=== PATIENT | female | born 1975 | race Caucasian/White ===

== ENCOUNTER 2019-04-21 13:01 | Inpatient (IN) | payer MEDICARE, MEDICAID, SELFPAY ==
[2019-04-21] VITALS (42 sets, daily range): BP systolic 102–163; BP diastolic 25–95; PULSE 61–121; RESP 3–36; TEMP 36.5–37.7; O2SAT 82–98
--- NOTE | 2019-04-21 13:30 | ED.GENADUL_ITS ---
Discharge Plan Disposition Patient Disposition: [facility] INPATIENT Condition: Stable Discharge Details Chief Complaint: SOB Clinical Impression: Asthma exacerbation, Hypoxia Primary Care Provider: Uziel Gonzalez ED Provider: Tulio Jones Home Meds and New Rx's Prescriptions: No Action leflunomide 20 mg tablet 20 mg PO DAILY Qty: 90 RF: 4 cetirizine [Zyrtec] 10 MG tablet,chewable 10 mg PO DAILY PRN RF: 0 desonide 15 GM cream Topical DAILY Qty: 60 RF: 3 secukinumab [Cosentyx (2 Syringes)] 150 MG/1 ML syringe 150 mg SQ Q28 days RF: 0 paroxetine HCl 20 MG tablet 20 mg PO DAILY Qty: 90 RF: 4 budesonide-formoterol [Symbicort] 10.2 GM HFA aerosol inhaler 2 puff Inhalation BID Qty: 1 RF: 11 PROVENTIL HFA 18 GM HFA.AER.AD 2 puff Inhalation Q6H PRN Qty: 2 RF: 4 diclofenac sodium 75 MG tablet,delayed release (DR/EC) 75 mg PO BID Qty: 180 RF: 4 ergocalciferol (vitamin D2) [Vitamin D2] 50,000 UNITS capsule 50,000 units PO DIRECTED Qty: 12 RF: 4 magnesium oxide 400 mg tablet 400 mg PO DAILY Qty: 90 RF: 4 diazepam 5 mg tablet 5 mg PO BID PRN Qty: 60 RF: 1 esomeprazole magnesium [Nexium] 40 mg capsule,delayed release(DR/EC) 40 mg PO BID Qty: 180 RF: 4 hydrochlorothiazide 25 mg tablet 25 mg PO DAILY Qty: 90 RF: 4 Medical Decision Making 44 yo female who states she has a hx of asthma, chronic smoker, comes in with 1 week of shortness of breath and cough. >Denies recent travel, fevers. She is in no respiratory distress on exam but is noted to have diffuse expieratory wheezing in all lung ayala bilaterally. no leg edema or calf pain or pleuritic pain and exam is consistent with asthma/copd so doubt PE. No chest pain/pressure so doubt acs. Given smoking hx suspect likely copd exacerbation, will tx with steroids, nebs and abx given increased cough and reassess. No fever and appears well so doubt pna pt's o2 saturation is now in the mid 80's on room air, increases to low to mid 90's on NC 3L. Wheezing has improved on exam Lab work shows mild elevation of probnp, mild low K. Has mild wheezing at the apices but is still hypoxic requiring o2, xray unremarkable. Will obtain CT to eval for possible pe vs infiltrate not being seen on xray ct shows groundglass opacities in the right upper lobe, no PE. Still requiring o2, will admit for asthma exacerbation and continued monitoring Differential Diagnosis copd, asthma, bronchitis Imaging Data Radiologic Study: Attestation: I personally reviewed and interpreted this imaging study as follows: Imaging: X-Ray Radiologist's impression: cardiomegaly Radiologic Study #2: Attestation: I personally reviewed and interpreted this imaging study as follows: Imaging: CT Scan Radiologist's impression: IMPRESSION: 1. No acute pulmonary embolus. 2. Groundglass opacities within the right upper lobe. Lab Data Lab results reviewed: Yes I reviewed the patient's lab results. ECG Data Attestation: I personally reviewed and interpreted this ECG (s) as follows: Prior ECG tracings: not available for review Interpretation: sinus rhythm, rate of 80, qtc 499, no acute st t wave ischemic findings HPI General Mode of arrival: ambulatory . Date/Time Provider Initiated Documentation: 04/21/19 13:05 . Limitations to Documentation: no limitations . Information obtained by: patient . History of Present Illness 44 year old F presents to the emergency department with the chief complaint of shortness of breath, described as moderate, Patient started experiencing this week(s) (1) and it has been constant. No relieving factors improve symptom(s), No exacerbating factors reported . Patient notes cough. Related Data Home Medications Medication Instructions Recorded Confirmed cetirizine [Zyrtec] 10 mg PO DAILY PRN tab-cap 06/02/14 03/30/18 desonide 0 TOPICAL DAILY #60 g 03/13/18 secukinumab [Cosentyx (2 Syringes)] 150 mg SQ Q28 days syringe 04/12/18 paroxetine HCl 20 mg PO DAILY #90 tab-cap 05/06/18 budesonide-formoterol [Symbicort 2 puff INHALATION BID #1 inhaler 05/07/18 160/4.5 Mcg Inhaler] diclofenac sodium 75 mg PO BID #180 tab-cap 05/21/18 ergocalciferol (vitamin D2) 50,000 units PO DIRECTED #12 cap 05/21/18 [Vitamin D2] magnesium oxide 400 mg (241.3 mg 400 mg PO DAILY #90 tab 07/11/18 magnesium) tablet leflunomide 20 mg tablet 20 mg PO DAILY #90 tab 11/26/18 11/26/18 diazepam 5 mg tablet 5 mg PO BID PRN #60 tab-cap 02/11/19 esomeprazole magnesium 40 mg 40 mg PO BID #180 tab-cap 03/13/19 capsule,delayed release hydrochlorothiazide 25 mg tablet 25 mg PO DAILY #90 tab-cap 04/02/19 Previous Rx's Medication Instructions Recorded paroxetine HCl 20 mg PO DAILY #90 tab-cap 05/06/18 budesonide-formoterol [Symbicort 2 puff INHALATION BID #1 inhaler 05/07/18 160/4.5 Mcg Inhaler] diclofenac sodium 75 mg PO BID #180 tab-cap 05/21/18 ergocalciferol (vitamin D2) 50,000 units PO DIRECTED #12 cap 05/21/18 [Vitamin D2] magnesium oxide 400 mg (241.3 mg 400 mg PO DAILY #90 tab 07/11/18 magnesium) tablet leflunomide 20 mg tablet 20 mg PO DAILY #90 tab 11/26/18 diazepam 5 mg tablet 5 mg PO BID PRN #60 tab-cap 02/11/19 esomeprazole magnesium 40 mg 40 mg PO BID #180 tab-cap 03/13/19 capsule,delayed release hydrochlorothiazide 25 mg tablet 25 mg PO DAILY #90 tab-cap 04/02/19 Allergies Allergy/AdvReac Type Severity Reaction Status Date / Time indomethacin [From Indocin] AdvReac Severe ABD PAIN, Unverified 04/21/19 13:26 DIARRHEA acetaminophen AdvReac Unverified 04/21/19 13:26 ibuprofen AdvReac Unverified 04/21/19 13:26 LEMON Allergy Severe SWELLING Uncoded 04/21/19 13:26 TEA DRINK Allergy Severe SWELLING Uncoded 04/21/19 13:26 General Stated Complaint: SOB MOUSTAPHA: 3 Review of Systems Review of Systems All systems reviewed & are unremarkable except as noted in HPI and below Constitutional Denies chills, Denies fever(s) and Denies weakness Cardiovascular Denies chest pain Gastrointestinal Denies abdominal pain, Denies nausea and Denies vomiting Integumentary/Breasts Denies rash Neurologic Denies weakness PFSH Surgical History section (~07/1996) Ligation of fallopian tube (~08/2004) NASAL (~2000) Tonsillectomy and adenoidectomy Family History Mother Essential hypertension Personal history of malignant neoplasm Depression Asthma Father Diabetes Essential hypertension Heart disease Sister Diabetes Essential hypertension Grandfather Myocardial infarction Grandfather Personal history of malignant neoplasm Myocardial infarction Stroke Grandmother Personal history of malignant neoplasm Heart disease Stroke Asthma Grandmother Diabetes Essential hypertension Personal history of malignant neoplasm Sister Depression Son Depression Social History Smoking/Tobacco Use Status: Current every day Tobacco Type: cigarettes Alcohol Intake: current Alcohol Intake frequency: holidays/special occasions only Drug use: Never Do you feel safe in your relationship?: Yes Exam Const General: no acute distress Orientation: alert HENMT Head: normal to inspection Ears: external ears normal General nose exam: external nose normal Mouth: moist mucous membranes Eyes General: appearance normal, both eyes and all related structures Neck Neck: normal visual inspection Resp Effort & Inspection: normal respiratory effort and able to speak in complete sentences Cardio Rate: regular rate Skin General skin exam: no rashes or lesions noted Neuro General: alert and oriented x3 Extrem General: normal to inspection Psych Mental Status: mental status grossly normal Course Vital Signs Temperature 36.5 C 04/21/19 13:18 Pulse 80 04/21/19 13:18 Respiratory Rate 19 04/21/19 13:18 Blood Pressure 161/75 H 04/21/19 13:18 Pulse Oximetry 94 L 04/21/19 13:18 Temperature 36.5 C 04/21/19 13:18 Temperature Source Temporal Artery Scan 04/21/19 13:18 Pulse 80 04/21/19 13:18 Respiratory Rate 16 04/21/19 13:22 Respiratory Effort 04/21/19 13:22 Respiratory Depth Normal 04/21/19 13:22 Respiratory Pattern Irregular 04/21/19 13:22 Blood Pressure 161/75 H 04/21/19 13:18 Pulse Oximetry 94 L 04/21/19 13:18 Oxygen Delivery Method Nasal Cannula 04/21/19 13:18 Oxygen Flow Rate 2 04/21/19 13:18
[2019-04-21] MEDS: predniSONE 20 MG TAB 60 MG PO (13:39)
[2019-04-21] MEDS: levoFLOXacin 500 MG, levoFLOXacin 250 MG 750 MG PO (13:39)
[2019-04-21] MEDS: Albuterol/Ipratropium 3 ML UPD VIAL UPD ×5 (13:39→23:49)
--- NOTE | 2019-04-21 14:45 | DI.RAD_ITS ---
SYMPTOMS/DIAGNOSIS: COUGH, SHORTNESS OF BREATH PORTABLE CHEST: Comparison is made with [id number]. The exam is limited by the patient's body habitus. Leads overlie the chest. The heart appears enlarged. There are streaky densities in the right lung which appear unchanged when compared with the previous exam. No new infiltrate, effusion or pulmonary edema is seen. IMPRESSION: Cardiomegaly. No definite acute abnormality.
--- NOTE | 2019-04-21 15:23 | NUR.NOTE ---
Nursing Note: MD made aware of Pt oxygen saturation of 88% on RA. Increased to 96% on NC at 4lpm.
[2019-04-21 15:26] LABS: Abs Immature Grans 0.01 k/cumm (0.0-0.09); Absolute Basophil Count 0.03 k/cumm (0.0-0.2); Absolute Eosinophil Count 0.05 k/cumm (0.0-0.7); Absolute Lymphocyte Count 0.75 k/cumm (1.2-3.4); Absolute Monocyte Count 0.45 k/cumm (0.11-0.7); Absolute Neutrophil Count 2.93 k/cumm (1.2-6.7); Basophils % 0.7; Eosinophils % 1.2; HCT 36.2 % (36.0-46.0); HGB 11.6 g/dL (12.0-15.5); Immature Grans % 0.2; Lymphocytes % 17.8; Mean Corpuscular Hemoglobin 26.3 pg (27.0-33.0); Mean Corpuscular Volume 82.1 fL (80-95); Monocytes % 10.7; Neutrophils % 69.4; Platelet Count 186 x1000/uL (130-400); RBC 4.41 m/cumm (4.00-5.20); RBC Distribution Width 16.6 % (11.7-14.6); White Blood Cell Count 4.22 k/cumm (4.4-10.8)
[2019-04-21 15:39] LABS: INR 1.1 (0.9-1.1); PTT Activated 29.6 sec (21.0-31.4)
[2019-04-21 15:46] LABS: ALT 18 U/L (12-78); AST 20 U/L (15-37); Albumin 3.2 g/dL (3.4-5.0); Alkaline Phosphatase 70 U/L (46-116); Anion Gap 11.6 mmol/L (3-11); BUN 9 mg/dL (7-18); Bilirubin, Total 0.3 mg/dL (0.2-1.0); CO2 27.4 mmol/L (21.0-32.0); CREATININE 0.97 mg/dL (0.55-1.02); Calcium 8.6 mg/dL (8.5-10.1); Chloride 101 mmol/L (98-107); Glucose 112 mg/dL (70-100); NT-proBNP 602 pg/mL; Potassium 3.2 mmol/L (3.5-5.1); Sodium 140 mmol/L (136-145); Total Protein 7.4 g/dL (6.4-8.2)
[2019-04-21 15:50] LABS: Troponin I < 0.02 ng/mL (0.00-0.06)
--- NOTE | 2019-04-21 15:52 | DI.CT_ITS ---
SYMPTOM/DIAGNOSIS: HYPOXIA PE CHEST CT: CT angiography was performed with multi slice acquisition and multi planar and 3D reconstruction. Comparison is made with 11/23/11. There is no evidence of pulmonary emboli or aortic dissection. No pleural or pericardial effusions are seen. Scarring is again noted in the right middle and right lower lobes. There is mild associated bronchiectasis in the right middle lobe. No mass, adenopathy or pulmonary nodules are seen. There are multiple ground glass opacities seen in both upper lobes, right greater than left. Evaluation of the lungs is suboptimal due to respiratory motion. There are no visible emphysematous changes. No suspicious bony abnormalities are identified. IMPRESSION: Bilateral upper lobe ground glass opacities may indicate infectious or inflammatory pneumonitis.
[2019-04-21] MEDS: Omnipaque 350 MG/ML 100 ML BTL IJ (16:24)
--- NOTE | 2019-04-21 17:13 | DI.VRAD_ITS ---
EXAM: CT Angiography Chest With Contrast EXAM DATE/TIME: 04/21/2019 3:53 PM CLINICAL HISTORY: 44 years old, female; Signs and symptoms; Other: Hypoxia TECHNIQUE: Imaging protocol: Axial computed tomographic angiography images of the chest with intravenous contrast using CT angiography protocol. Coronal and sagittal reformatted images were created and reviewed. 3D rendering: MIP reconstructed images were created and reviewed. COMPARISON: CR XR PORTABLE CHEST AP 04/21/2019 2:50 PM FINDINGS: Pulmonary arteries: No acute pulmonary embolus. Aorta: No aortic aneurysm. No aortic dissection. Lungs: Scarring within right middle lobe with focal bronchiectasis. Groundglass opacities within the right upper lobe. Pleural space: Unremarkable. No pneumothorax. No pleural effusion. Heart: Mild cardiomegaly. Lymph nodes: Unremarkable. No enlarged lymph nodes. Bones/joints: Unremarkable. No acute fracture. Soft tissues: Unremarkable. IMPRESSION: 1. No acute pulmonary embolus. 2. Groundglass opacities within the right upper lobe. Dictated and Authenticated by: Ryne Houser MD. Ordering:GAIL Antunez MD
[2019-04-21] MEDS: Potassium Chloride 20 MEQ TABCR 40 MEQ PO (17:30)
[2019-04-21 17:39] LABS: Bilirubin Negative (Negative); Blood Negative (Negative); Clarity Clear; Glucose Negative (Negative); Ketones Negative (Negative); Leukocyte Esterase Negative (Negative); Nitrite Negative (Negative); Urobilinogen 0.2 EU/dL (Up TO 0.2); pH 6.5 (5-8)
[2019-04-21 17:46] LABS: RBC Negative (0-2); WBC Negative HPF (0-5)
[2019-04-21 17:47] LABS: Bacteria Rare HPF (Negative); C & S Indicated? No; Casts Negative LPF (Negative); Crystals Negative HPF (Negative); Epithelial Cells Rare HPF (Negative); Mucus Trace (Negative); Other Cells Negative (Negative)
--- NOTE | 2019-04-21 18:02 | W.PM.HP.N ---
Date of service: 04/21/19 Time of Service: 18:02 Assessment and Plan (1) Exacerbation of asthma: Start date: 04/21/19 Current visit: Yes Status: Acute This is a 44-year-old lady being admitted for exacerbation of asthma with probable element of COPD. She is having hypoxemia with no acute infiltrates but chronic appearing groundglass opacities in the right upper lobe with decreased aeration over the right lung ayala. She is on Levaquin which will be continued orally and we will aggressively treat her bronchospasm with nebulizer treatments and IV Solu-Medrol. She will continue O2 supplementation. Because of her fatigue and prolonged symptoms it is anticipated she will be hospitalized more than 48 hours. Qualifiers: Asthma persistence: persistent Asthma severity: severe Qualified Code(s): J45.51 - Severe persistent asthma with (acute) exacerbation (2) Hypoxemia: Start date: 04/21/19 Current visit: Yes Status: Acute Acute and associated with bronchospasm and probable plugging with increased mobilization of mucus with recent viral URI and decreased smoking. Continue O2 supplementation with aggressive respiratory treatment. (3) Acute bronchitis: Start date: 04/21/19 Current visit: Yes Status: Acute Continue on Levaquin for bronchitis but also because of increased sputum and question of groundglass opacities right upper lobe with follow-up imaging if indicated. Qualifiers: Bronchitis organism: unspecified organism Qualified Code(s): J20.9 - Acute bronchitis, unspecified (4) Tobacco abuse: Current visit: Yes Status: Chronic Patient smokes most of her adult life since age of 19 and is extremely cardiac. Place NicoDerm patch while in the hospital and tobacco cessation counseling should be ongoing. History of Present Illness Chief Complaint: Hoarse voice and cough for 1 week Narrative: This is a 44-year-old lady who has a history of asthma for the last several years and is a smoker with sleep apnea not severe enough for treatment according to her report. She began to have a raspy voice 1 week prior to admission and felt feverish but had no measured fever. She is here to have cough with increasing shortness of breath and increasing wheezing which prompted her to be evaluated in the ED the morning of admission. She was in the ED most of the day and was being ready to arrange for home care when she had hypoxemia and worsening cough with production of sputum after treatments. Because of her fatigue and hypoxemia she was given Levaquin orally and was already given 1 dose of oral prednisone but will be changed to IV Solu-Medrol and more aggressive respiratory care with oxygen supplementation with admission. She is not having any hemoptysis. She was having some pleuritic pain with her cough. She was slightly dyspneic. Her hoarse voice persisted. She denied any nausea or vomiting. Imaging with CT scan of the chest revealed no acute infiltrates but did have some groundglass opacities within the right upper lobe with no evidence of pulmonary emboli. There was mild cardiomegaly on chest x-ray. The patient states that she will not smoke when she returns home but has smoked most of her adult life. She is obese but may be contributing to her sleep apnea. Review of Systems Review of Systems 13 point review of systems otherwise unrevealing or stable. [facility] Surgical History section (~07/1996) Ligation of fallopian tube (~08/2004) NASAL (~2000) Tonsillectomy and adenoidectomy Family History Mother Essential hypertension Personal history of malignant neoplasm Depression Asthma Father Diabetes Essential hypertension Heart disease Sister Diabetes Essential hypertension Grandfather Myocardial infarction Grandfather Personal history of malignant neoplasm Myocardial infarction Stroke Grandmother Personal history of malignant neoplasm Heart disease Stroke Asthma Grandmother Diabetes Essential hypertension Personal history of malignant neoplasm Sister Depression Son Depression Social History Smoking/Tobacco Use Status: Current every day Tobacco Type: cigarettes Alcohol Intake: current Alcohol Intake frequency: holidays/special occasions only Drug use: Never Do you feel safe in your relationship?: Yes Meds Home Medications Medication Instructions Recorded Confirmed Type cetirizine [Zyrtec] 10 mg PO DAILY PRN tab-cap 06/02/14 04/21/19 History desonide 0 TOPICAL DAILY #60 g 03/13/18 History secukinumab [Cosentyx (2 Syringes)] 150 mg SQ Q28 days syringe 04/12/18 04/21/19 History paroxetine HCl 20 mg PO DAILY #90 tab-cap 05/06/18 04/21/19 Rx budesonide-formoterol [Symbicort 2 puff INHALATION BID #1 inhaler 05/07/18 04/21/19 Rx 160/4.5 Mcg Inhaler] Proventil Hfa 2 puff INHALATION Q6H PRN #2 05/21/18 04/21/19 Clinic inhaler diclofenac sodium 75 mg PO BID #180 tab-cap 05/21/18 04/21/19 Rx ergocalciferol (vitamin D2) 50,000 units PO DIRECTED #12 cap 05/21/18 04/21/19 Rx [Vitamin D2] magnesium oxide 400 mg (241.3 mg 400 mg PO DAILY #90 tab 07/11/18 04/21/19 Rx magnesium) tablet leflunomide 20 mg tablet 20 mg PO DAILY #90 tab 11/26/18 04/21/19 Rx diazepam 5 mg tablet 5 mg PO BID PRN #60 tab-cap 02/11/19 04/21/19 Rx esomeprazole magnesium 40 mg 40 mg PO BID #180 tab-cap 03/13/19 04/21/19 Rx capsule,delayed release hydrochlorothiazide 25 mg tablet 25 mg PO DAILY #90 tab-cap 04/02/19 04/21/19 Rx Allergies Allergy/AdvReac Type Severity Reaction Status Date / Time indomethacin [From Indocin] AdvReac Severe ABD PAIN, Unverified 04/21/19 18:05 DIARRHEA acetaminophen AdvReac Unverified 04/21/19 18:05 ibuprofen AdvReac Unverified 04/21/19 18:05 LEMON Allergy Severe SWELLING Uncoded 04/21/19 18:05 TEA DRINK Allergy Severe SWELLING Uncoded 04/21/19 18:05 Exam Narrative Exam Narrative: General: Patient appears appropriate for age in moderate distress from coughing and with her hoarse voice. She is moderately obese. She is alert and oriented x3. HEENT: Normocephalic with eyes normal revealing pupils equal and reactive to light symmetrically and extraocular movement intact. Sclera anicteric. Oropharynx with moist oral mucosa. Neck: Supple without JVD. Back: Stooped posture with no CVA tenderness. Lungs: Bronchovesicular breath sounds diffusely with decreased aeration on the right compared to left and increased expiratory phase more on right than left with expiratory wheeze diffusely. Heart: Regular rate and rhythm without murmurs or gallops appreciated. Breasts: Exam deferred. Abdomen: Soft, obese contour and nontender to palpation with bowel sounds positive in all quadrants. No palpable hepatosplenomegaly. Genitalia/rectal: Exam deferred. Extremities: Without clubbing, cyanosis or pitting edema. All joints have fair range of motion. Skin: Pale, warm and dry. Neuro: Cranial nerves II through XII grossly intact, no focalizing motor deficits. Psych: Slightly anxious with pressured speech, good eye contact and normal affect. Mood is not depressed. Remote and recent memory intact. Results Labs : 04/21/19 14:30 04/21/19 14:30 Laboratory Results - last 24 hr 04/21/19 04/21/19 04/21/19 14:30 14:30 14:30 WBC 4.22 L RBC 4.41 Hgb 11.6 L Hct 36.2 MCV 82.1 MCH 26.3 L MCHC 32.0 RDW 16.6 H Plt Count 186 MPV 10.0 Immature Gran % 0.2 Neutrophils % 69.4 Lymphocytes % 17.8 Monocytes % 10.7 Eosinophils % 1.2 Basophils % 0.7 Absolute Neutrophils 2.93 Absolute Lymphocytes 0.75 L Absolute Monocytes 0.45 Absolute Eosinophils 0.05 Absolute Basophils 0.03 PT 11.0 INR 1.1 APTT 29.6 Sodium 140 Potassium 3.2 L Chloride 101 Carbon Dioxide 27.4 Anion Gap 11.6 H BUN 9 Creatinine 0.97 Estimated GFR/1.73 m2 >= 60.00 Glucose 112 H Calcium 8.6 Magnesium 2.0 Total Bilirubin 0.3 AST 20 ALT 18 Alkaline Phosphatase 70 Troponin I < 0.02 NT-Pro-B Natriuret Pep 602 H Total Protein 7.4 Albumin 3.2 L Urine Color Urine Clarity Urine pH Ur Specific [place] Urine Protein Urine Ketones Urine Blood Urine Nitrite Urine Bilirubin Urine Urobilinogen Ur Leukocyte Esterase Urine RBC Urine WBC Ur Epithelial Cells Urine Crystals Urine Bacteria Urine Casts Urine Mucus Urine Other Ur Culture Indicated? Urine Glucose 04/21/19 17:31 WBC RBC Hgb Hct MCV MCH MCHC RDW Plt Count MPV Immature Gran % Neutrophils % Lymphocytes % Monocytes % Eosinophils % Basophils % Absolute Neutrophils Absolute Lymphocytes Absolute Monocytes Absolute Eosinophils Absolute Basophils PT INR APTT Sodium Potassium Chloride Carbon Dioxide Anion Gap BUN Creatinine Estimated GFR/1.73 m2 Glucose Calcium Magnesium Total Bilirubin AST ALT Alkaline Phosphatase Troponin I NT-Pro-B Natriuret Pep Total Protein Albumin Urine Color Yellow Urine Clarity Clear Urine pH 6.5 Ur Specific [place] 1.010 Urine Protein 30 H Urine Ketones Negative Urine Blood Negative Urine Nitrite Negative Urine Bilirubin Negative Urine Urobilinogen 0.2 Ur Leukocyte Esterase Negative Urine RBC Negative Urine WBC Negative Ur Epithelial Cells Rare Urine Crystals Negative Urine Bacteria Rare Urine Casts Negative Urine Mucus Trace Urine Other Negative Ur Culture Indicated? No Urine Glucose Negative Last Vital Signs Temp 36.5 C 04/21/19 13:18 Pulse 84 04/21/19 16:46 Resp 25 H 04/21/19 16:50 BP 163/80 H 04/21/19 16:46 Pulse Ox 85 L 04/21/19 16:50
[2019-04-21 19:15] LABS: FREE T4 1.07 ng/dL (0.76-1.46)
--- NOTE | 2019-04-21 19:30 | NUR.NOTE ---
Nursing Note: Pt to [facility] floor at 1949 from ER via w/c. Pt A&Ox3. VSS, lungs wheezy and tight t/o. SOB at rest and exertion. Pt's SI brought in medications from home; sent to pharmacy. Pt's SI at bedside. Pt oriented to [facility] floor, call mahmood, medication administration. Call mahmood within reach. RN will continue to monitor.
[2019-04-21] MEDS: Esomeprazole 40 MG CAPCR PO (21:27)
[2019-04-21] MEDS: Enoxaparin 40 MG/0.4 ML SYR SC (21:27)
[2019-04-21] MEDS: methylPREDNISolone SUCC 125 MG VIAL 80 MG IVP (21:27)
[2019-04-22] VITALS (8 sets, daily range): BP systolic 119–165; BP diastolic 75–84; PULSE 63–77; RESP 4–20; TEMP 36.2–37.2; O2SAT 92–98
[2019-04-22] MEDS: methylPREDNISolone SUCC 125 MG VIAL 80 MG IVP ×2 (03:56→11:51)
[2019-04-22] MEDS: Albuterol/Ipratropium 3 ML UPD VIAL UPD ×3 (05:47→18:16)
[2019-04-22 07:05] LABS: HCT 37.5 % (36.0-46.0); HGB 11.6 g/dL (12.0-15.5); Mean Corp. HGB Concentration 30.9 g/dL (32.0-36.0); Mean Corpuscular Hemoglobin 25.4 pg (27.0-33.0); Mean Corpuscular Volume 82.2 fL (80-95); Mean Platelet Volume 9.7 fL (8.0-11.0); Platelet Count 191 x1000/uL (130-400); RBC 4.56 m/cumm (4.00-5.20); RBC Distribution Width 16.8 % (11.7-14.6); White Blood Cell Count 3.88 k/cumm (4.4-10.8)
[2019-04-22 07:22] LABS: ALT 15 U/L (12-78); AST 18 U/L (15-37); Albumin 3.1 g/dL (3.4-5.0); Alkaline Phosphatase 66 U/L (46-116); Anion Gap 10.4 mmol/L (3-11); BUN 11 mg/dL (7-18); Bilirubin, Total 0.2 mg/dL (0.2-1.0); CO2 24.6 mmol/L (21.0-32.0); CREATININE 0.78 mg/dL (0.55-1.02); Calcium 8.4 mg/dL (8.5-10.1); Chloride 103 mmol/L (98-107); Glucose 151 mg/dL (70-100); Potassium 3.9 mmol/L (3.5-5.1); Sodium 138 mmol/L (136-145); Total Protein 7.4 g/dL (6.4-8.2)
[2019-04-22] MEDS: PARoxetine 20 MG TAB PO (08:56)
[2019-04-22] MEDS: levoFLOXacin 500 MG TAB PO (08:56)
[2019-04-22] MEDS: Esomeprazole 40 MG CAPCR PO ×2 (08:57→20:31)
[2019-04-22] MEDS: hydroCHLOROthiazide 25 MG TAB PO (08:57)
[2019-04-22] MEDS: Nicotine 21 MG/24 HR PATCH TD (09:12)
[2019-04-22] MEDS: Normal Saline Flush 10 ML SYR IVP (11:50)
[2019-04-22] MEDS: LORazepam 0.5 MG TAB PO (11:51)
[2019-04-22] MEDS: Magnesium Oxide 400 MG TAB PO (11:57)
[2019-04-22 12:18] LABS: Lactate-non-spesis 1.8 mmol/l (0.6-1.4)
--- NOTE | 2019-04-22 15:38 | PGE_ITS ---
Date of Service Date of service: 04/22/19 Time of Service: 15:29 Assessment and Plan (1) Exacerbation of asthma: Current visit: Yes Status: Acute Improved. Start to decrease steroids. Continue symbicort, nebs. Wean O2 as tolerated. Qualifiers: Asthma severity: severe Asthma persistence: persistent Qualified Code(s): J45.51 - Severe persistent asthma with (acute) exacerbation (2) Pneumonitis: Current visit: Yes Status: Acute Acute vs chronic. My understanding is that this patient's CT is not normal at baseline. She followed with Dr Rm of pulmonlogy at [facility] - we will send the images to [facility] and attempt a phone consult. For now, continue empiric levofloxacin and steroids. (3) Hypoxemia: Current visit: Yes Status: Acute Treat as above. Wean O2 as tolerated (4) Tobacco abuse: Current visit: Yes Status: Chronic Advised to quit - seems to be pretty motivated. 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 (8) DVT prophylaxis: Current visit: Yes Status: Acute Lovenox Subjective Interval history since last seen: Feels better today. Voice sounds better, does not have pain in lungs today. She is tolerating the nebs per mask better than per handheld tube. Denies dizziness, wheezing, productive cough, nausea/vomiting. Less short of breath. Requiring 2 L of O2. Exam Narrative Exam Narrative: General: obese female, anxious, able to speak in lengthy sentences without getting short of breath, voice hoarseness noted HEENT: EOMI, MMM Heart: RRR, no m/r/g Lungs: No wheezing, diminished, but with audible B air entry, clear GI: abdomen is soft, nontender, nondistended Extremities: no e/c/c BLE's Objective Objective Clinical Data: Abnormal lab results 04/21/19 04/21/19 04/21/19 Range/Units 14:30 14:30 14:30 WBC 4.22 L (4.4-10.8) k/cumm Hgb 11.6 L (12.0-15.5) g/dL MCH 26.3 L (27.0-33.0) pg MCHC (32.0-36.0) g/dL RDW 16.6 H (11.7-14.6) % Absolute Lymphocytes 0.75 L (1.2-3.4) k/cumm Potassium 3.2 L (3.5-5.1) mmol/L Anion Gap 11.6 H (3-11) mmol/L Glucose 112 H (70-100) mg/dL Lactate (0.6-1.4) mmol/l Calcium (8.5-10.1) mg/dL NT-Pro-B Natriuret Pep 602 H ( - 299) pg/mL Albumin 3.2 L (3.4-5.0) g/dL TSH 4.50 H (0.358-3.74) uIU/mL Urine Protein (Negative) mg/dL 04/21/19 04/22/19 04/22/19 Range/Units 17:31 06:50 06:50 WBC 3.88 L (4.4-10.8) k/cumm Hgb 11.6 L (12.0-15.5) g/dL MCH 25.4 L (27.0-33.0) pg MCHC 30.9 L (32.0-36.0) g/dL RDW 16.8 H (11.7-14.6) % Absolute Lymphocytes (1.2-3.4) k/cumm Potassium (3.5-5.1) mmol/L Anion Gap (3-11) mmol/L Glucose 151 H (70-100) mg/dL Lactate (0.6-1.4) mmol/l Calcium 8.4 L (8.5-10.1) mg/dL NT-Pro-B Natriuret Pep ( - 299) pg/mL Albumin 3.1 L (3.4-5.0) g/dL TSH (0.358-3.74) uIU/mL Urine Protein 30 H (Negative) mg/dL 04/22/19 Range/Units 12:10 WBC (4.4-10.8) k/cumm Hgb (12.0-15.5) g/dL MCH (27.0-33.0) pg MCHC (32.0-36.0) g/dL RDW (11.7-14.6) % Absolute Lymphocytes (1.2-3.4) k/cumm Potassium (3.5-5.1) mmol/L Anion Gap (3-11) mmol/L Glucose (70-100) mg/dL Lactate 1.8 H (0.6-1.4) mmol/l Calcium (8.5-10.1) mg/dL NT-Pro-B Natriuret Pep ( - 299) pg/mL Albumin (3.4-5.0) g/dL TSH (0.358-3.74) uIU/mL Urine Protein (Negative) mg/dL Vital Signs Temperature 36.6 C 04/22/19 14:57 Temperature Source Tympanic 04/22/19 14:57 Pulse 69 04/22/19 14:57 Pulse Rhythm Regular 04/22/19 09:05 Pulse 86 04/21/19 16:50 Respiratory Rate 20 04/22/19 14:57 Respiratory Effort Non-Labored 04/22/19 09:05 Respiratory Depth Normal 04/22/19 09:05 Respiratory Pattern Normal 04/22/19 09:05 Blood Pressure 150/84 H 04/22/19 14:57 Blood Pressure Mean 102 04/21/19 16:46 Pulse Oximetry 95 04/22/19 14:57 Oxygen Delivery Method Nasal Cannula 04/22/19 14:57 Oxygen Flow Rate 3 04/22/19 14:57 Pain Level 3 04/22/19 07:55 Intake & Output 04/21/19 04/22/19 04/22/19 23:59 11:59 23:59 Intake Total 860 / 1100 240 / 1100 Balance 860 / 1100 240 / 1100 Weight 113.398 kg 117.2 kg Intake: Oral 860 / 1100 240 / 1100 Other: Urine Appearance Clear Comment voiding independently Laboratory Results WBC 3.88 k/cumm (4.4-10.8) L 04/22/19 06:50 RBC 4.56 m/cumm (4.00-5.20) 04/22/19 06:50 Hgb 11.6 g/dL (12.0-15.5) L 04/22/19 06:50 Hct 37.5 % (36.0-46.0) 04/22/19 06:50 MCV 82.2 fL (80-95) 04/22/19 06:50 MCH 25.4 pg (27.0-33.0) L 04/22/19 06:50 MCHC 30.9 g/dL (32.0-36.0) L 04/22/19 06:50 RDW 16.8 % (11.7-14.6) H 04/22/19 06:50 Plt Count 191 x1000/uL (130-400) 04/22/19 06:50 MPV 9.7 fL (8.0-11.0) 04/22/19 06:50 Immature Gran % 0.2 04/21/19 14:30 Neutrophils % 69.4 04/21/19 14:30 Lymphocytes % 17.8 04/21/19 14:30 Monocytes % 10.7 04/21/19 14:30 Eosinophils % 1.2 04/21/19 14:30 Basophils % 0.7 04/21/19 14:30 Absolute Neutrophils 2.93 k/cumm (1.2-6.7) 04/21/19 14:30 Absolute Lymphocytes 0.75 k/cumm (1.2-3.4) L 04/21/19 14:30 Absolute Monocytes 0.45 k/cumm (0.11-0.7) 04/21/19 14:30 Absolute Eosinophils 0.05 k/cumm (0.0-0.7) 04/21/19 14:30 Absolute Basophils 0.03 k/cumm (0.0-0.2) 04/21/19 14:30 PT 11.0 sec (9.3-11.0) 04/21/19 14:30 INR 1.1 (0.9-1.1) 04/21/19 14:30 APTT 29.6 sec (21.0-31.4) 04/21/19 14:30 Sodium 138 mmol/L (136-145) 04/22/19 06:50 Potassium 3.9 mmol/L (3.5-5.1) D 04/22/19 06:50 Chloride 103 mmol/L (98-107) 04/22/19 06:50 Carbon Dioxide 24.6 mmol/L (21.0-32.0) 04/22/19 06:50 Anion Gap 10.4 mmol/L (3-11) 04/22/19 06:50 BUN 11 mg/dL (7-18) 04/22/19 06:50 Creatinine 0.78 mg/dL (0.55-1.02) 04/22/19 06:50 Estimated GFR/1.73 m2 >= 60.00 (mL/min/1.73m2) 04/22/19 06:50 Glucose 151 mg/dL (70-100) H 04/22/19 06:50 Lactate 1.8 mmol/l (0.6-1.4) H 04/22/19 12:10 Calcium 8.4 mg/dL (8.5-10.1) L 04/22/19 06:50 Magnesium 2.0 mg/dL (1.8-2.4) 04/21/19 14:30 Total Bilirubin 0.2 mg/dL (0.2-1.0) 04/22/19 06:50 AST 18 U/L (15-37) 04/22/19 06:50 ALT 15 U/L (12-78) 04/22/19 06:50 Alkaline Phosphatase 66 U/L (46-116) 04/22/19 06:50 Troponin I < 0.02 ng/mL (0.00-0.06) 04/21/19 14:30 NT-Pro-B Natriuret Pep 602 pg/mL (-299) H 04/21/19 14:30 Total Protein 7.4 g/dL (6.4-8.2) 04/22/19 06:50 Albumin 3.1 g/dL (3.4-5.0) L 04/22/19 06:50 TSH 4.50 uIU/mL (0.358-3.74) H 04/21/19 14:30 Free T4 1.07 ng/dL (0.76-1.46) 04/21/19 14:30 Urine Color Yellow (Yellow) 04/21/19 17:31 Urine Clarity Clear 04/21/19 17:31 Urine pH 6.5 (5-8) 04/21/19 17:31 Ur Specific [place] 1.010 (1.005-1.025) 04/21/19 17:31 Urine Protein 30 mg/dL (Negative) H 04/21/19 17:31 Urine Ketones Negative mg/dL (Negative) 04/21/19 17:31 Urine Blood Negative (Negative) 04/21/19 17:31 Urine Nitrite Negative (Negative) 04/21/19 17:31 Urine Bilirubin Negative (Negative) 04/21/19 17:31 Urine Urobilinogen 0.2 EU/dL (Up TO 0.2) 04/21/19 17:31 Ur Leukocyte Esterase Negative (Negative) 04/21/19 17:31 Urine RBC Negative (0-2) 04/21/19 17:31 Urine WBC Negative HPF (0-5) 04/21/19 17:31 Ur Epithelial Cells Rare HPF (Negative) 04/21/19 17:31 Urine Crystals Negative HPF (Negative) 04/21/19 17:31 Urine Bacteria Rare HPF (Negative) 04/21/19 17:31 Urine Casts Negative LPF (Negative) 04/21/19 17:31 Urine Mucus Trace (Negative) 04/21/19 17:31 Urine Other Negative (Negative) 04/21/19 17:31 Ur Culture Indicated? No 04/21/19 17:31 Urine Glucose Negative mg/dL (Negative) 04/21/19 17:31
--- NOTE | 2019-04-22 15:46 | CHAPLAIN ---
Rose was sitting up in her chair when I visited. She said she is feeling much better today than yesterday. She spent most of yesterday in the ER with a pain scale of 10, she said, and today it is 3. She lives in [facility] with a man who has been her caregiver/partner for many years. She expects he will be in later today to visit. Her parents and an aunt were in this morning. Rose said she is disabled and now is dealing with health-related issue in her mobile home, which feels is causing some of her respiratory problems, that and the high pollen count, she said. She has been taking it one day at a time, she said after being very fearful in the ED when she couldn't breath well.
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
[2019-04-22] MEDS: Diclofenac Sodium 75 MG TABEC PO (20:31)
[2019-04-22] MEDS: Budesonide/Formoterol 160/4.5 6 GM 60 PUFF INH IH (20:31)
[2019-04-22] MEDS: Enoxaparin 40 MG/0.4 ML SYR SC (20:32)
[2019-04-22] MEDS: methylPREDNISolone SUCC 125 MG VIAL 60 MG IVP (20:32)
[2019-04-23] VITALS (9 sets, daily range): BP systolic 134–170; BP diastolic 83–93; PULSE 63–73; RESP 1–20; TEMP 35.3–36.9; O2SAT 38–99
[2019-04-23] MEDS: Albuterol/Ipratropium 3 ML UPD VIAL UPD ×5 (00:23→23:35)
[2019-04-23] MEDS: methylPREDNISolone SUCC 125 MG VIAL 60 MG IVP ×2 (04:48→11:06)
[2019-04-23] MEDS: Normal Saline Flush 10 ML SYR IVP (04:50)
[2019-04-23 06:57] LABS: Lactate-non-spesis 0.9 mmol/l (0.6-1.4)
[2019-04-23 07:07] LABS: Abs Immature Grans 0.01 k/cumm (0.0-0.09); Absolute Lymphocyte Count 0.56 k/cumm (1.2-3.4); Absolute Monocyte Count 0.34 k/cumm (0.11-0.7); Absolute Neutrophil Count 5.77 k/cumm (1.2-6.7); HCT 39.5 % (36.0-46.0); HGB 12.4 g/dL (12.0-15.5); Immature Grans % 0.1; Lymphocytes % 8.4; Mean Corp. HGB Concentration 31.4 g/dL (32.0-36.0); Mean Corpuscular Hemoglobin 25.8 pg (27.0-33.0); Mean Corpuscular Volume 82.3 fL (80-95); Monocytes % 5.1; Neutrophils % 86.4; Platelet Count 204 x1000/uL (130-400); RBC Distribution Width 16.6 % (11.7-14.6); White Blood Cell Count 6.68 k/cumm (4.4-10.8)
[2019-04-23 07:27] LABS: Anion Gap 8.9 mmol/L (3-11); BUN 23 mg/dL (7-18); CO2 27.1 mmol/L (21.0-32.0); CREATININE 0.89 mg/dL (0.55-1.02); Calcium 9.2 mg/dL (8.5-10.1); Chloride 103 mmol/L (98-107); Glucose 144 mg/dL (70-100); Magnesium 2.5 mg/dL (1.8-2.4); Potassium 3.9 mmol/L (3.5-5.1); Sodium 139 mmol/L (136-145)
[2019-04-23] MEDS: Budesonide/Formoterol 160/4.5 6 GM 60 PUFF INH IH ×2 (08:03→22:37)
[2019-04-23] MEDS: Diclofenac Sodium 75 MG TABEC PO ×2 (10:47→19:31)
[2019-04-23] MEDS: PARoxetine 20 MG TAB PO (10:47)
[2019-04-23] MEDS: levoFLOXacin 500 MG TAB PO (10:47)
[2019-04-23] MEDS: Esomeprazole 40 MG CAPCR PO ×2 (10:48→19:31)
[2019-04-23] MEDS: hydroCHLOROthiazide 25 MG TAB PO (10:48)
[2019-04-23] MEDS: diazePAM 5 MG TAB PO (11:07)
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
--- NOTE | 2019-04-23 15:00 | CHAPLAIN ---
Rose said she is feeling better today and is off oxygen now. She talked about the Reiki treatment she received from the [facility] volunteer, Rickey. Rose said she is not usually able to relax her body, but that she felt relaxed during the Reiki treatment and also felt a great deal of warmth on her body. Rose shared some personal history about her family's gnosticist background and how she has attended different types of Congregation churches, and is interested in learning about other faiths, like Voodoo. She said she connects to God when she is outside and when it is warm and soothing, however she lives in [place] and being outside can be challenging because of the cold weather, black flies and mosquitoes, although she goes to [place] twice a year and really enjoys being outside there and relaxing.
--- NOTE | 2019-04-23 17:49 | W.PM.PROGNOT ---
Date of Service Date of service: 04/23/19 Time of Service: 17:49 Assessment and Plan (1) Exacerbation of asthma: Current visit: Yes Status: Acute Improving steadily. No longer requiring O2. Transition to PO steroids. Continue levofloxacin, symbicort, nebs. Will arrange for a nebulizer machine on discharge. Qualifiers: Asthma severity: severe Asthma persistence: persistent Qualified Code(s): J45.51 - Severe persistent asthma with (acute) exacerbation (2) Pneumonitis: Current visit: Yes Status: Acute Acute vs chronic. Clinically better. Will review imaging with [facility] pulmonary. As above (3) Hypoxemia: Current visit: Yes Status: Resolved Treat as above. Wean O2 as tolerated (4) Tobacco abuse: Current visit: Yes Status: Chronic Advised to quit - seems to be pretty motivated. 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 Denies dizziness, chest pain. Shortness of breath and voice hoarseness are much better. Denies nausea/vomiting. Has been on room air all day. Exam Narrative Exam Narrative: General: obese female, voice sounds better, still tremulous and anxious, but better HEENT: EOMI, MMM Heart: RRR, no m/r/g Lungs: coarse breath sounds B, less diminished GI: abdomen is soft, nontender, nondistended Extremities: no e/c/c BLE's Objective Objective Clinical Data: Abnormal lab results 04/23/19 04/23/19 Range/Units 06:51 06:51 MCH 25.8 L (27.0-33.0) pg MCHC 31.4 L (32.0-36.0) g/dL RDW 16.6 H (11.7-14.6) % Absolute Lymphocytes 0.56 L (1.2-3.4) k/cumm BUN 23 H D (7-18) mg/dL Glucose 144 H (70-100) mg/dL Magnesium 2.5 H (1.8-2.4) mg/dL Vital Signs Temperature 36.3 C L 04/23/19 16:27 Temperature Source Tympanic 04/23/19 16:27 Pulse 63 04/23/19 16:27 Pulse Rhythm Regular 04/23/19 05:08 Pulse 86 04/21/19 16:50 Respiratory Rate 19 04/23/19 16:27 Respiratory Effort 04/23/19 05:08 Respiratory Depth Normal 04/23/19 05:08 Respiratory Pattern Normal 04/23/19 05:08 Blood Pressure 142/84 H 04/23/19 16:27 Blood Pressure Mean 102 04/21/19 16:46 Pulse Oximetry 95 04/23/19 16:27 Oxygen Delivery Method Room Air 04/23/19 16:27 Oxygen Flow Rate 0 04/23/19 16:27 Pain Level 0 04/23/19 16:27 Intake & Output 04/22/19 04/23/19 04/23/19 23:59 11:59 23:59 Intake Total 480 / 1340 450 / 570 120 / 570 Balance 480 / 1340 450 / 570 120 / 570 Weight 116.1 kg Intake: Oral 480 / 1340 450 / 570 120 / 570 Other: Urine Appearance Clear Clear Comment voiding independently Laboratory Results WBC 6.68 k/cumm (4.4-10.8) D 04/23/19 06:51 RBC 4.80 m/cumm (4.00-5.20) 04/23/19 06:51 Hgb 12.4 g/dL (12.0-15.5) 04/23/19 06:51 Hct 39.5 % (36.0-46.0) 04/23/19 06:51 MCV 82.3 fL (80-95) 04/23/19 06:51 MCH 25.8 pg (27.0-33.0) L 04/23/19 06:51 MCHC 31.4 g/dL (32.0-36.0) L 04/23/19 06:51 RDW 16.6 % (11.7-14.6) H 04/23/19 06:51 Plt Count 204 x1000/uL (130-400) 04/23/19 06:51 MPV 10.0 fL (8.0-11.0) 04/23/19 06:51 Immature Gran % 0.1 04/23/19 06:51 Neutrophils % 86.4 04/23/19 06:51 Lymphocytes % 8.4 04/23/19 06:51 Monocytes % 5.1 04/23/19 06:51 Eosinophils % 0.0 04/23/19 06:51 Basophils % 0.0 04/23/19 06:51 Absolute Neutrophils 5.77 k/cumm (1.2-6.7) 04/23/19 06:51 Absolute Lymphocytes 0.56 k/cumm (1.2-3.4) L 04/23/19 06:51 Absolute Monocytes 0.34 k/cumm (0.11-0.7) 04/23/19 06:51 Absolute Eosinophils 0.00 k/cumm (0.0-0.7) 04/23/19 06:51 Absolute Basophils 0.00 k/cumm (0.0-0.2) 04/23/19 06:51 PT 11.0 sec (9.3-11.0) 04/21/19 14:30 INR 1.1 (0.9-1.1) 04/21/19 14:30 APTT 29.6 sec (21.0-31.4) 04/21/19 14:30 Sodium 139 mmol/L (136-145) 04/23/19 06:51 Potassium 3.9 mmol/L (3.5-5.1) 04/23/19 06:51 Chloride 103 mmol/L (98-107) 04/23/19 06:51 Carbon Dioxide 27.1 mmol/L (21.0-32.0) 04/23/19 06:51 Anion Gap 8.9 mmol/L (3-11) 04/23/19 06:51 BUN 23 mg/dL (7-18) H D 04/23/19 06:51 Creatinine 0.89 mg/dL (0.55-1.02) 04/23/19 06:51 Estimated GFR/1.73 m2 >= 60.00 (mL/min/1.73m2) 04/23/19 06:51 Glucose 144 mg/dL (70-100) H 04/23/19 06:51 Lactate 0.9 mmol/l (0.6-1.4) 04/23/19 06:51 Calcium 9.2 mg/dL (8.5-10.1) 04/23/19 06:51 Magnesium 2.5 mg/dL (1.8-2.4) H 04/23/19 06:51 Total Bilirubin 0.2 mg/dL (0.2-1.0) 04/22/19 06:50 AST 18 U/L (15-37) 04/22/19 06:50 ALT 15 U/L (12-78) 04/22/19 06:50 Alkaline Phosphatase 66 U/L (46-116) 04/22/19 06:50 Troponin I < 0.02 ng/mL (0.00-0.06) 04/21/19 14:30 NT-Pro-B Natriuret Pep 602 pg/mL (-299) H 04/21/19 14:30 Total Protein 7.4 g/dL (6.4-8.2) 04/22/19 06:50 Albumin 3.1 g/dL (3.4-5.0) L 04/22/19 06:50 TSH 4.50 uIU/mL (0.358-3.74) H 04/21/19 14:30 Free T4 1.07 ng/dL (0.76-1.46) 04/21/19 14:30 Urine Color Yellow (Yellow) 04/21/19 17:31 Urine Clarity Clear 04/21/19 17:31 Urine pH 6.5 (5-8) 04/21/19 17:31 Ur Specific [place] 1.010 (1.005-1.025) 04/21/19 17:31 Urine Protein 30 mg/dL (Negative) H 04/21/19 17:31 Urine Ketones Negative mg/dL (Negative) 04/21/19 17:31 Urine Blood Negative (Negative) 04/21/19 17:31 Urine Nitrite Negative (Negative) 04/21/19 17:31 Urine Bilirubin Negative (Negative) 04/21/19 17:31 Urine Urobilinogen 0.2 EU/dL (Up TO 0.2) 04/21/19 17:31 Ur Leukocyte Esterase Negative (Negative) 04/21/19 17:31 Urine RBC Negative (0-2) 04/21/19 17:31 Urine WBC Negative HPF (0-5) 04/21/19 17:31 Ur Epithelial Cells Rare HPF (Negative) 04/21/19 17:31 Urine Crystals Negative HPF (Negative) 04/21/19 17:31 Urine Bacteria Rare HPF (Negative) 04/21/19 17:31 Urine Casts Negative LPF (Negative) 04/21/19 17:31 Urine Mucus Trace (Negative) 04/21/19 17:31 Urine Other Negative (Negative) 04/21/19 17:31 Ur Culture Indicated? No 04/21/19 17:31 Urine Glucose Negative mg/dL (Negative) 04/21/19 17:31
[2019-04-23] MEDS: predniSONE 20 MG TAB 60 MG PO (19:31)
[2019-04-23] MEDS: Enoxaparin 40 MG/0.4 ML SYR SC (19:31)
[2019-04-24 00:05] VITALS: RESP 8
[2019-04-24 06:22] VITALS: BP 134/65; PULSE 66; RESP 14; TEMP 36.5; O2SAT 94
[2019-04-24] MEDS: Albuterol/Ipratropium 3 ML UPD VIAL UPD ×2 (06:24→13:46)
[2019-04-24] MEDS: predniSONE 20 MG TAB 60 MG PO (09:16)
[2019-04-24] MEDS: PARoxetine 20 MG TAB PO (09:16)
[2019-04-24] MEDS: Diclofenac Sodium 75 MG TABEC PO (09:16)
[2019-04-24] MEDS: levoFLOXacin 500 MG TAB PO (09:16)
[2019-04-24] MEDS: Esomeprazole 40 MG CAPCR PO (09:16)
[2019-04-24] MEDS: hydroCHLOROthiazide 25 MG TAB PO (09:16)
[2019-04-24] MEDS: Budesonide/Formoterol 160/4.5 6 GM 60 PUFF INH IH (09:18)
[2019-04-24 09:22] VITALS: BP 156/91; PULSE 65; RESP 16; TEMP 36.4; O2SAT 91
--- NOTE | 2019-04-24 11:52 | W.PM.DS.N ---
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 (6) Anxiety: Status: Chronic Discharge Plan Disposition Patient Disposition: HOME Condition: Stable Discharge Details Reason For Visit: ASTHMA EXACERBATION,BRONCHITIS,TOBACCO ABUSE Admit Date/Time: 04/21/19 17:51 Admit Provider: Corbin Eddy Attending Provider: Corbin Eddy Primary Care Provider: Uziel Gonzalez [facility] Course Hospital Course: Ms Cook is a 44 year old female with PMH of asthma, chronic cough, GERD, anxiety, WPW, tobacco abuse, not normally on oxygen, admitted to [facility] on 04/21/19 with acute exacerbation of asthma with hypoxia due to what appears to be pneumonitis on CT of the chest. The patient was initiated on scheduled and prn nebulizer, IV steroids, empiric levofloxacin, with rapid significant improvement of symptoms. By hospital day 4, the patient is no longer requiring oxygen at rest or on ambulation, has been transitioned to PO steroids and is feeling well enough to return home. Her CT images were forwarded to [facility] pulmonlogy (she sees Dr Loza) - we hope that Ms Cook can follow up with Dr Loza in the near future. The patient is attempting to quit smoking and will be going home with a prescription for nicotine replacement. She is being discharged home with a nebulizer machine and a prescription for prn nebs. 45 minutes were spent on providing care as well as completion of discharge summary for the patient on the day of discharge. Home Meds and New Rx's Prescriptions: New ipratropium-albuterol 0.5 mg-3 mg(2.5 mg base)/3 mL Solution For Nebulization 3 ml UPD Q4H PRN PRN (Reason: shortness of breath or wheezing) Qty: 180 RF: 0 levofloxacin [Levaquin] 500 mg Tablet 500 mg PO DAILY Qty: 3 RF: 0 prednisone 20 mg Tablet See Rx Instructions .ROUTE .COMPLEX Qty: 26 RF: 0 nicotine 21 mg/24 hr Patch 24 Hour 21 mg Transdermal DAILY PRN PRNQty: 30 RF: 0 Continued leflunomide 20 mg tablet 20 mg PO DAILY Qty: 90 RF: 4 cetirizine [Zyrtec] 10 MG tablet,chewable 10 mg PO DAILY PRN RF: 0 desonide 15 GM cream Topical DAILY Qty: 60 RF: 3 Cosentyx (2 Syringes) 150 MG/1 ML syringe 150 mg SQ Q28 days RF: 0 paroxetine HCl 20 MG tablet 20 mg PO DAILY Qty: 90 RF: 4 Symbicort 10.2 GM HFA aerosol inhaler 2 puff Inhalation BID Qty: 1 RF: 11 PROVENTIL HFA 18 GM HFA.AER.AD 2 puff Inhalation Q6H PRN Qty: 2 RF: 4 diclofenac sodium 75 MG tablet,delayed release (DR/EC) 75 mg PO BID Qty: 180 RF: 4 ergocalciferol (vitamin D2) [Vitamin D2] 50,000 UNITS capsule 50,000 units PO DIRECTED Qty: 12 RF: 4 diazepam 5 mg tablet 5 mg PO BID PRN Qty: 60 RF: 1 esomeprazole magnesium [Nexium] 40 mg capsule,delayed release(DR/EC) 40 mg PO BID Qty: 180 RF: 4 hydrochlorothiazide 25 mg tablet 25 mg PO DAILY Qty: 90 RF: 4 Discontinued magnesium oxide 400 mg tablet 400 mg PO DAILY Qty: 90 RF: 4 Discharge Instructions Instructions: Pneumonitis (DC), How to Stop Smoking (DC) Additional Instructions: Finish your antibiotics and steroids as prescribed. Return to the hospital with any fever, bleeding, chest pain, or worsening shortness of breath. Follow up with your PCP in 1-2 weeks. Follow up with Dr Loza. Stand Alone Forms: Nursing Discharge Form Referrals: PULMONOLOGY,[facility] [OTHER] - (Dr Loza's patient - follow up post hospitalization for asthma exacerbation +/- pneumonitis; images from CT pushed to [facility]) Uziel Gonzalez MD [Primary Care Provider] - 05/07/19 9:20 am Activity:: Activity as Tolerated Equipment/Supplies:: nebulizer machine Diet:: As Tolerated Discharge Orders Discharge Orders: Discharge Order (Routine); Ordered 04/24/19 Ordered By: Lindsey Collins Exam Narrative Exam Narrative: General: obese female, A&Ox3, speaking with a hoarse voice, no dyspnea/tachypnea, looks better; tremulous, mildly anxious HEENT: EOMI, MMM Heart: RRR, no m/r/g Lungs: coarse breath sounds B, good B air entry GI: abdomen is soft, nontender, nondistended Extremities: no e/c/c BLE's DS: Data Vitals/I&O Vitals and I&O: Vital Signs Temperature 36.4 C L 04/24/19 09:22 Temperature Source Tympanic 04/24/19 09:22 Pulse 65 04/24/19 09:22 Pulse Rhythm Regular 04/24/19 09:00 Pulse 86 04/21/19 16:50 Respiratory Rate 16 04/24/19 09:22 Respiratory Effort 04/24/19 09:00 Respiratory Depth Normal 04/24/19 09:00 Respiratory Pattern Normal 04/24/19 09:00 Blood Pressure 156/91 H 04/24/19 09:22 Blood Pressure Mean 102 04/21/19 16:46 Pulse Oximetry 91 L 04/24/19 09:22 Oxygen Delivery Method Room Air 04/24/19 09:22 Oxygen Flow Rate 0 04/24/19 09:22 Pain Level 0 04/23/19 16:27 Comment 04/24/19 09:22 Intake & Output 04/23/19 04/23/19 04/24/19 11:59 23:59 11:59 Intake Total 450 / 810 360 / 810 Balance 450 / 810 360 / 810 Weight 116.1 kg 116.1 kg 116.1 kg Intake: Oral 450 / 810 360 / 810 Other: Urine Appearance Clear Voiding Methods Toilet Completed studies during hospitalization [Text1]: CXR 04/21/19: Cardiomegaly. No definite acute abnormality. CT chest 04/21/19: Bilateral upper lobe ground glass opacities may indicate infectious or inflammatory pneumonitis. Labs on day of discharge: Preliminary micro results at discharge 04/21/19 15:21 Blood Culture - Preliminary Blood NO GROWTH 48 HOURS 04/21/19 14:45 Blood Culture - Preliminary Blood NO GROWTH 48 HOURS [facility] Surgical History section (~07/1996) Ligation of fallopian tube (~08/2004) NASAL (~2000) Tonsillectomy and adenoidectomy Family History Mother Essential hypertension Personal history of malignant neoplasm Depression Asthma Father Diabetes Essential hypertension Heart disease Sister Diabetes Essential hypertension Grandfather Myocardial infarction Grandfather Personal history of malignant neoplasm Myocardial infarction Stroke Grandmother Personal history of malignant neoplasm Heart disease Stroke Asthma Grandmother Diabetes Essential hypertension Personal history of malignant neoplasm Sister Depression Son Depression Social History Smoking/Tobacco Use Status: Current every day Tobacco Type: cigarettes Alcohol Intake: current Alcohol Intake frequency: holidays/special occasions only Drug use: Never Do you feel safe in your relationship?: Yes
--- NOTE | 2019-04-24 12:00 | DSE_ITS ---
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 (6) Anxiety: Status: Chronic Discharge Plan Disposition Patient Disposition: HOME Condition: Stable Discharge Details Reason For Visit: ASTHMA EXACERBATION,BRONCHITIS,TOBACCO ABUSE Admit Date/Time: 04/21/19 17:51 Admit Provider: Corbin Eddy Attending Provider: Corbin Eddy Primary Care Provider: Uziel Gonzalez [facility] Course Hospital Course: Ms Cook is a 44 year old female with PMH of asthma, chronic cough, GERD, anxiety, WPW, tobacco abuse, not normally on oxygen, admitted to [facility] on 04/21/19 with acute exacerbation of asthma with hypoxia due to what appears to be pneumonitis on CT of the chest. The patient was initiated on scheduled and prn nebulizer, IV steroids, empiric levofloxacin, with rapid significant improvement of symptoms. By hospital day 4, the patient is no longer requiring oxygen at rest or on ambulation, has been transitioned to PO steroids and is feeling well enough to return home. Her CT images were forwarded to [facility] pulmonlogy (she sees Dr Loza) - we hope that Ms Cook can follow up with Dr Loza in the near future. The patient is attempting to quit smoking and will be going home with a prescription for nicotine replacement. She is being discharged home with a nebulizer machine and a prescription for prn nebs. 45 minutes were spent on providing care as well as completion of discharge summary for the patient on the day of discharge. Home Meds and New Rx's Prescriptions: New ipratropium-albuterol 0.5 mg-3 mg(2.5 mg base)/3 mL Solution For Nebulization 3 ml UPD Q4H PRN PRN (Reason: shortness of breath or wheezing) Qty: 180 RF: 0 levofloxacin [Levaquin] 500 mg Tablet 500 mg PO DAILY Qty: 3 RF: 0 prednisone 20 mg Tablet See Rx Instructions .ROUTE .COMPLEX Qty: 26 RF: 0 nicotine 21 mg/24 hr Patch 24 Hour 21 mg Transdermal DAILY PRN PRNQty: 30 RF: 0 Continued leflunomide 20 mg tablet 20 mg PO DAILY Qty: 90 RF: 4 cetirizine [Zyrtec] 10 MG tablet,chewable 10 mg PO DAILY PRN RF: 0 desonide 15 GM cream Topical DAILY Qty: 60 RF: 3 Cosentyx (2 Syringes) 150 MG/1 ML syringe 150 mg SQ Q28 days RF: 0 paroxetine HCl 20 MG tablet 20 mg PO DAILY Qty: 90 RF: 4 Symbicort 10.2 GM HFA aerosol inhaler 2 puff Inhalation BID Qty: 1 RF: 11 PROVENTIL HFA 18 GM HFA.AER.AD 2 puff Inhalation Q6H PRN Qty: 2 RF: 4 diclofenac sodium 75 MG tablet,delayed release (DR/EC) 75 mg PO BID Qty: 180 RF: 4 ergocalciferol (vitamin D2) [Vitamin D2] 50,000 UNITS capsule 50,000 units PO DIRECTED Qty: 12 RF: 4 diazepam 5 mg tablet 5 mg PO BID PRN Qty: 60 RF: 1 esomeprazole magnesium [Nexium] 40 mg capsule,delayed release(DR/EC) 40 mg PO BID Qty: 180 RF: 4 hydrochlorothiazide 25 mg tablet 25 mg PO DAILY Qty: 90 RF: 4 Discontinued magnesium oxide 400 mg tablet 400 mg PO DAILY Qty: 90 RF: 4 Discharge Instructions Instructions: Pneumonitis (DC), How to Stop Smoking (DC) Additional Instructions: Finish your antibiotics and steroids as prescribed. Return to the hospital with any fever, bleeding, chest pain, or worsening shortness of breath. Follow up with your PCP in 1-2 weeks. Follow up with Dr Loza. Stand Alone Forms: Nursing Discharge Form Referrals: PULMONOLOGY,[facility] [OTHER] - (Dr Loza's patient - follow up post hospitalization for asthma exacerbation +/- pneumonitis; images from CT pushed to [facility]) Uziel Gonzalez MD [Primary Care Provider] - 05/07/19 9:20 am Activity:: Activity as Tolerated Equipment/Supplies:: nebulizer machine Diet:: As Tolerated Discharge Orders Discharge Orders: Discharge Order (Routine); Ordered 04/24/19 Ordered By: Lindsey Collins Exam Narrative Exam Narrative: General: obese female, A&Ox3, speaking with a hoarse voice, no dyspnea/tachypnea, looks better; tremulous, mildly anxious HEENT: EOMI, MMM Heart: RRR, no m/r/g Lungs: coarse breath sounds B, good B air entry GI: abdomen is soft, nontender, nondistended Extremities: no e/c/c BLE's DS: Data Vitals/I&O Vitals and I&O: Vital Signs Temperature 36.4 C L 04/24/19 09:22 Temperature Source Tympanic 04/24/19 09:22 Pulse 65 04/24/19 09:22 Pulse Rhythm Regular 04/24/19 09:00 Pulse 86 04/21/19 16:50 Respiratory Rate 16 04/24/19 09:22 Respiratory Effort 04/24/19 09:00 Respiratory Depth Normal 04/24/19 09:00 Respiratory Pattern Normal 04/24/19 09:00 Blood Pressure 156/91 H 04/24/19 09:22 Blood Pressure Mean 102 04/21/19 16:46 Pulse Oximetry 91 L 04/24/19 09:22 Oxygen Delivery Method Room Air 04/24/19 09:22 Oxygen Flow Rate 0 04/24/19 09:22 Pain Level 0 04/23/19 16:27 Comment 04/24/19 09:22 Intake & Output 04/23/19 04/23/19 04/24/19 11:59 23:59 11:59 Intake Total 450 / 810 360 / 810 Balance 450 / 810 360 / 810 Weight 116.1 kg 116.1 kg 116.1 kg Intake: Oral 450 / 810 360 / 810 Other: Urine Appearance Clear Voiding Methods Toilet Completed studies during hospitalization [Text1]: CXR 04/21/19: Cardiomegaly. No definite acute abnormality. CT chest 04/21/19: Bilateral upper lobe ground glass opacities may indicate infectious or inflammatory pneumonitis. Labs on day of discharge: Preliminary micro results at discharge 04/21/19 15:21 Blood Culture - Preliminary Blood NO GROWTH 48 HOURS 04/21/19 14:45 Blood Culture - Preliminary Blood NO GROWTH 48 HOURS [facility] Surgical History section (~07/1996) Ligation of fallopian tube (~08/2004) NASAL (~2000) Tonsillectomy and adenoidectomy Family History Mother Essential hypertension Personal history of malignant neoplasm Depression Asthma Father Diabetes Essential hypertension Heart disease Sister Diabetes Essential hypertension Grandfather Myocardial infarction Grandfather Personal history of malignant neoplasm Myocardial infarction Stroke Grandmother Personal history of malignant neoplasm Heart disease Stroke Asthma Grandmother Diabetes Essential hypertension Personal history of malignant neoplasm Sister Depression Son Depression Social History Smoking/Tobacco Use Status: Current every day Tobacco Type: cigarettes Alcohol Intake: current Alcohol Intake frequency: holidays/special occasions only Drug use: Never Do you feel safe in your relationship?: Yes
--- NOTE | 2019-04-24 12:11 | NUR.NOTE ---
Ambulated pt in [address] on RA, walked approx 1000ft and o2 sat remained at 94% on RA, denied SOB.
--- NOTE | 2019-04-24 15:28 | PDOC.CMDIS ---
LACE Index Scoring Tool - Questions: Length of Stay (in days): 3 Acuity (Admit via E.D.?): Yes E.D. Visits: 2 - Answers: Total Score: 8 Risk of Readmission: Low Risk Care Management Discharge Reason for Hospitalization: Asthma Exacerbation, Bronchitis, Tobacco Abuse Discharge Plan: Rose will return home when ready per MD. She will have new referrals for [facility] smoking cessation and [facility] for housing supports. She will have a follow up appointment with her PCP, [employer] [facility] and a scheduled PFT with respiratory. RT filled prescription for nebulizer through [facility] at Rose's request. Rose will transport via private vehicle with her significant other, Lambert. Patient/Family Education Needs: Review of community based supports, self care needs upon discharge; discussed Ask Me [employer]. Services Needed at Discharge: DME Agency (Nebulizer through [facility]. )
--- NOTE | 2019-04-24 15:34 | CMDISCH_ITS ---
LACE Index Scoring Tool - Questions: Length of Stay (in days): 3 Acuity (Admit via E.D.?): Yes E.D. Visits: 2 - Answers: Total Score: 8 Risk of Readmission: Low Risk Care Management Discharge Reason for Hospitalization: Asthma Exacerbation, Bronchitis, Tobacco Abuse Discharge Plan: Rose will return home when ready per MD. She will have new referrals for [facility] smoking cessation and [facility] for housing supports. She will have a follow up appointment with her PCP, [employer] and a scheduled PFT with respiratory. RT filled prescription for nebulizer through [facility] at Rose's request. Rose will transport via private vehicle with her significant other, Lambert. Patient/Family Education Needs: Review of community based supports, self care needs upon discharge; discussed Ask Me Three. Services Needed at Discharge: DME Agency (Nebulizer through [facility]. )
== END 2019-04-24 14:22 | disposition home or self-care (01) | DRG 205 ==
LOC: ER 18:15 → MS 18:36
PROVIDERS: Admitting Provider Family Medicine; Emergency Provider Emergency Medicine; PCP Family Medicine; Visit Provider Internal Medicine
DX: R09.02 Hypoxemia (principal); J18.9 Pneumonia, unspecified organism; J45.51 Severe persistent asthma with (acute) exacerbation; J20.9 Acute bronchitis, unspecified; F17.210 Nicotine dependence, cigarettes, uncomplicated; R41.9 Unspecified symptoms and signs involving cognitive functions and awareness; I45.6 Pre-excitation syndrome
CPT/HCPCS: 36415; 71275; 80048; 80053; 85027; 87040; 93005; 94640; 99223; 99232; 99239; 99285; J1650; 71045; 81003; 81015; 83605; 83735; 83880; 84439; 84443; 84484; 85025; 85610; 85730; 93010; J2930; J3490; J7512; J7620

== ENCOUNTER → 2020-05-24 14:16 | Outpatient (BNVA) | payer MEDICARE, MEDICAID, SELFPAY | PROVIDERS: PCP Family Medicine; Referring Provider Family Medicine; Visit Provider Nurse Practitioner Gerontology | DX: N39.41 Urge incontinence (principal); I10 Essential (primary) hypertension | CPT/HCPCS: 81003; 99204; 99215 ==

== ENCOUNTER 2020-09-22 01:58 | Outpatient (CLI) | payer MEDICARE, MEDICAID, SELFPAY ==
[2020-09-22 14:03] LABS: Abs Immature Grans 0.02 10^3/uL (0.0-0.06); Absolute Basophil Count 0.05 10^3/uL (0.0-0.2); Absolute Eosinophil Count 0.03 10^3/uL (0.0-0.7); Absolute Lymphocyte Count 1.13 10^3/uL (1.2-3.4); Absolute Monocyte Count 0.37 10^3/uL (0.1-0.8); Absolute Neutrophil Count 5.34 10^3/uL (1.2-6.7); Basophils % 0.7; Eosinophils % 0.4; HCT 41.8 % (36.0-46.0); HGB 13.1 g/dL (11.2-15.7); Immature Grans % 0.3; Lymphocytes % 16.3; MCH 25.5 pg (27.0-33.0); MCHC 31.3 % (32.0-36.0); MCV 81.3 fL (80-95); MPV 9.5 fL (8.0-11.0); Monocytes % 5.3; Nucleated RBC 0 %; Platelet Count 299 10^3/uL (130-400); RBC 5.14 10^6/uL (3.93-5.22); RDW 18.6 % (11.7-14.6); RDW-SD 54.4 fL; WBC 6.94 10^3/uL (4.4-10.8)
[2020-09-22 14:40] LABS: Iron 101 ug/dL (50-170); Total Iron Binding Capacity 460 ug/dL (250-450); Transferrin Sat 22 % (15-50)
[2020-09-22 14:48] LABS: ALT 16 U/L (14-59); AST 13 U/L (15-37); Albumin 3.9 g/dL (3.4-5.0); Alkaline Phosphatase 77 U/L (46-116); Anion Gap 11.2 mmol/L (3-11); BUN 9 mg/dL (7-18); Bilirubin, Total 0.4 mg/dL (0.2-1.0); CO2 29.8 mmol/L (21.0-32.0); CREATININE 0.83 mg/dL (0.55-1.02); Calcium 9.1 mg/dL (8.5-10.1); Calculated LDL 102 mg/dL (<100); Chloride 103 mmol/L (98-107); Cholesterol 155 mg/dL (<200); Glucose 92 mg/dL (74-106); HDL Cholesterol 35 mg/dL (40-60); Sodium 144 mmol/L (136-145); TSH (W/Ref FT4) 1.06 uIU/mL (0.36-3.74); Total Protein 7.5 g/dL (6.4-8.2); Triglyceride 90 mg/dL (<150)
[2020-09-23 04:44] LABS: Vitamin D 25 Total 67.5 ng/ml (30-100)
== END 2020-09-22 02:18 ==
PROVIDERS: PCP Family Medicine; Visit Provider Family Medicine
DX: D50.0 Iron deficiency anemia secondary to blood loss (chronic) (principal); I10 Essential (primary) hypertension; J30.9 Allergic rhinitis, unspecified; E55.9 Vitamin D deficiency, unspecified; R79.89 Other specified abnormal findings of blood chemistry
CPT/HCPCS: 36415; 80053; 80061; 82306; 83540; 83550; 84443; 85025

== ENCOUNTER 2020-12-15 02:01 | Outpatient (CLI) | payer MEDICARE, MEDICAID, SELFPAY ==
--- NOTE | 2020-12-15 13:43 | DI.RAD_ITS ---
EXAM: XR SHOULDER RT COMPLETE 2+V CLINICAL HISTORY: PSORIATIC ARTHRITIS,L40.50,CHRONIC RT SHOULDER PAIN,M25.511.SEVERE W/O TRAU. TECHNIQUE: 2D digital imaging was performed. COMPARISON: No exams were available for comparison FINDINGS: BONES: No acute fracture is present. No bony destructive lesion is seen. JOINTS: No dislocation present. No significant spurring at the AC joint. Minimal spurring at the gle noid inferiorly. Glenohumeral joint space well maintained. SOFT TISSUE: Normal. IMPRESSION: Unremarkable radiographs of the right shoulder DATA REPOSITORY: RADIATION DOSE DELIVERED:
--- NOTE | 2020-12-15 13:44 | DI.RAD_ITS ---
EXAM: 2D digital imaging was performed. CLINICAL HISTORY: PSORIATIC ARHTITIS,L40.50,RT HAND PAIN,M79.641,ASSESS FOR EROSIVE DISEASE. COMPARISON: No exams were available for comparison TECHNIQUE: Three views of the hands and wrists were performed. FINDINGS: Bones are normally mineralized. The joint spaces are well maintained. There are no erosive or produ ctive lesions. There are no significant degenerative changes. No soft tissue calcifications are see n. IMPRESSION: Negative bilateral hands and wrists. No evidence of rib erosive disease. DATA REPOSITORY: RADIATION DOSE DELIVERED:
== END 2020-12-15 02:02 ==
LOC: DI 02:01
PROVIDERS: PCP Family Medicine; Visit Provider Nurse Practitioner
DX: M79.641 Pain in right hand (principal); L40.50 Arthropathic psoriasis, unspecified; M25.511 Pain in right shoulder
CPT/HCPCS: 73030; 73120

== ENCOUNTER 2021-01-20 00:58 | Outpatient (CLI) | payer MEDICARE, MEDICAID, SELFPAY ==
--- NOTE | 2021-01-20 08:15 | DI.MRI_ITS ---
EXAM: MR UPPER JOINT RT WO CLINICAL HISTORY: R/O rotator cuff tear,rt shoulder pain,m25.511 TECHNIQUE: Multiplanar multisequence MRI of the shoulder was performed. COMPARISON: CR XR ARTHRITIS SERIES from 12/15/2020 CR XR SHOULDER RT COMPLETE 2+V from 12/15/2020 FINDINGS: MARROW:There is no evidence of fracture, Hill-Sachs deformity, nor ominous osseous lesions. There is a degenerative subarticular cyst in the anterior aspect of the humeral head at the lesser tuberosity level which measures 7 x 6 by 8 millimeters. ROTATOR CUFF MECHANISM: There are mild degenerative changes in the AC joint. No prominent downgoing osteophytes. No undersu rface acromial hook. Undersurface of the acromion is flat-slightly concave. There is no impingement hook at this level. Supraspinatus: Tendinitis signal. No high-grade tear. There is small amount of fluid in the subacro mial-subdeltoid bursa. No muscle atrophy. Infraspinatus: Small amount of fluid measuring 7 x 3 millimeters at the level the musculotendinous ju nction consistent with partial tearing. No full-thickness tear. No atrophy. Teres minor: Intact. No tear. No atrophy. Subscapularis/anterior cuff: Intact. No tear. No muscle atrophy. Biceps tendon: Normally positioned within the intertubercular groove. No tear nor tenosynovitis. LABRUM: On 1 coronal image there is linear fluid invagination between the osseous glenoid in the supe rior labrum may be a small tear at this level. This is best seen on coronal image 14. The posterior labrum appears intact. Anterior labrum appears intact. Inferior labrum appears intact. Inferior g lenohumeral ligament intact. GLENOHUMERAL JOINT: No joint effusion nor obvious loose intra-articular bodies. No chondral defects. No osteophytes. There is a degenerative subarticular cyst in the lesser tuberosity which measures 8 x 6 x 7 millimeters. No evidence of capsular tear. The inferior glenohumeral ligament is intact. CAPSULE: No capsular tears evident. The inferior glenohumeral ligament is intact. QUADRILATERAL SPACE: No evidence of mass in the region of the axillary nerve and dorsal circumflex hu meral vessels. Visualized triceps muscle at this level appears unremarkable. IMPRESSION: 1. Tendinitis signal within supraspinatus. Although there is a small amount of fluid in the subacrom ial-subdeltoid bursa I do not see an obvious full-thickness tear and there is no retraction musculote ndinous junction. 2. Mild fluid at the musculotendinous junction of the infraspinatus consistent with mild tearing at t his level but no full-thickness tear. No muscle atrophy. Anterior cuff-subscapularis is intact 3. Small superior labral tear posterior to the biceps insertion site (coronal image 14). No evidence of paralabral cyst. 4. Minimal degenerative changes. However, there does appear to be an 8 x 6 x 7 millimeter degenerat david cyst anteriorly at the level of the lesser tuberosity. On the axial fat-sat T2 sequence this int raosseous cyst is seen communicating to the articular surface (axial fat-sat T2 slice 16.). Small amount of fluid in the subacromial-subdeltoid bursa, probable bursitis. There is no glenohumer al joint effusion. There is no loose intra-articular body evident. DATA REPOSITORY:
== END 2021-01-20 01:18 ==
PROVIDERS: PCP Nurse Practitioner Family; Visit Provider Nurse Practitioner Family
DX: M25.511 Pain in right shoulder (principal); M77.8 Other enthesopathies, not elsewhere classified; M62.89 Other specified disorders of muscle
CPT/HCPCS: 73221

== ENCOUNTER → 2021-02-22 09:15 | Outpatient (BNVA) | payer MEDICARE, MEDICAID, SELFPAY | PROVIDERS: PCP Nurse Practitioner Family; Referring Provider Nurse Practitioner Family; Visit Provider Student in an Organized Health Care Education/Training Program | DX: M75.21 Bicipital tendinitis, right shoulder (principal); M75.41 Impingement syndrome of right shoulder; M75.101 Unspecified rotator cuff tear or rupture of right shoulder, not specified as traumatic; M79.18 Myalgia, other site; Z79.891 Long term (current) use of opiate analgesic | CPT/HCPCS: 99204; 99214 ==

== ENCOUNTER 2021-10-03 00:29 | Outpatient (CLI) | payer MEDICARE, MEDICAID, SELFPAY ==
--- NOTE | 2021-10-03 07:30 | DI.MAMMO_ITS ---
Exam(s) MAMMO SCREENING EXAM: MAMMO SCREENING CLINICAL HISTORY: screening,Z12.39. TECHNIQUE: Bilateral full field digital CC and MLO mammographic images were obtained with 3D tomosyn thesis and utilizing computer aided detection (CAD). COMPARISON: Prior mammogram performed 2016 which is the only prior mammogram in our PACS FINDINGS: There has been no significant change in the appearance and distribution of the fibroglandular tissue. There are no CAD designations. There are no new spiculated masses nor malignant appearing microcalcification groups. Small nodule anteromedially in the right breast is unchanged from 2016 and therefore benign. The sma ll nodule lateral of center in the left breast located 10 cm in from the nipple is unchanged from 201 6 therefore also benign. There is no significant architectural distortion nor skin thickening-retraction. IMPRESSION: Stable benign findings. No radiographic evidence of malignancy. BI-RADS Category 1 - Negative Breast Density - Category B - Scattered areas of fibroglandular density Breast density Category C or D implies that the patient has dense breast tissue. Dense breast tissue can make it harder to find cancer on a mammogram. Dense breast tissue is also associated with an incr eased risk of breast cancer. This information about the result of the mammogram report was provided to the patient to raise their awareness. Use this report when you speak with the patient about their risks for breast cancer, which includes their family history. At that time, you may recommend additional screening tests (Ultrasoun d or MRI) as these tests may add significant information. A negative radiographic report should not delay biopsy if a dominant or clinically suspicious mass is present. Up to ten percent of cancers are not identified on mammography. A negative report may reinforce clinical impression. Adenosis and dense breasts may obscure an underlying neoplasm. False positive reports average 6 to 10%. Patient will receive a letter notifying them of these results.
== END 2021-10-03 00:49 ==
PROVIDERS: PCP Nurse Practitioner Family; Visit Provider Nurse Practitioner Family
DX: Z12.31 Encounter for screening mammogram for malignant neoplasm of breast (principal)
CPT/HCPCS: 77063; 77067

== ENCOUNTER 2021-10-03 02:18 | Outpatient (CLI) | payer MEDICARE, MEDICAID, SELFPAY ==
[2021-10-03 12:40] LABS: Hemoglobin A1C 5.1 % (<5.7)
[2021-10-03 13:28] LABS: ALT 21 U/L (14-59); AST 14 U/L (15-37); Albumin 3.5 g/dL (3.4-5.0); Alkaline Phosphatase 82 U/L (46-116); Anion Gap 6.3 mmol/L (3-11); BUN 14 mg/dL (7-18); Bilirubin, Total 0.3 mg/dL (0.2-1.0); CO2 30.7 mmol/L (21.0-32.0); CREATININE 0.9 mg/dL (0.55-1.02); Calcium 8.9 mg/dL (8.5-10.1); Calculated LDL 98 mg/dL (<100); Chloride 104 mmol/L (98-107); Cholesterol 147 mg/dL (<200); Glucose 82 mg/dL (74-106); HDL Cholesterol 40 mg/dL (40-60); Potassium 4.2 mmol/L (3.5-5.1); Sodium 141 mmol/L (136-145); TSH 1.08 uIU/mL (0.36-3.74); Total Protein 6.9 g/dL (6.4-8.2); Triglyceride 49 mg/dL (<150)
== END 2021-10-03 02:19 | disposition home or self-care (01) ==
LOC: LBO 02:18
PROVIDERS: PCP Nurse Practitioner Family; Visit Provider Nurse Practitioner Family
DX: I10 Essential (primary) hypertension; F41.9 Anxiety disorder, unspecified; R79.89 Other specified abnormal findings of blood chemistry
CPT/HCPCS: 36415; 80053; 80061; 83036; 84443

== ENCOUNTER 2023-01-10 03:03 | Outpatient (CLI) | payer MEDICARE, MEDICAID, SELFPAY ==
[2023-01-10 13:31] LABS: Abs Immature Grans 0.01 10^3/uL (0.0-0.06); Absolute Basophil Count 0.05 10^3/uL (0.0-0.2); Absolute Lymphocyte Count 1.67 10^3/uL (1.2-3.4); Absolute Monocyte Count 0.33 10^3/uL (0.1-0.8); Absolute Neutrophil Count 3.94 10^3/uL (1.2-6.7); Basophils % 0.8; Eosinophils % 1.6; HCT 41.1 % (36.0-46.0); HGB 13.5 g/dL (11.2-15.7); Immature Grans % 0.2; Lymphocytes % 27.4; MCH 28.2 pg (27.0-33.0); MCHC 32.8 % (32.0-36.0); MCV 86 fL (80-95); MPV 9.2 fL (8.0-11.0); Monocytes % 5.4; Neutrophils % 64.6; Platelet Count 236 10^3/uL (130-400); RBC 4.79 10^6/uL (3.93-5.22); RDW 14.3 % (11.7-14.6); RDW-SD 45.1 fL
[2023-01-10 13:34] LABS: ESR 8 mm/hr (0-20)
[2023-01-10 14:29] LABS: ALT 15 U/L (14-59); AST 12 U/L (15-37); Albumin 3.2 g/dL (3.4-5.0); Alkaline Phosphatase 74 U/L (46-116); Anion Gap 8.4 mmol/L (3-11); BUN 12 mg/dL (7-18); Bilirubin, Total 0.3 mg/dL (0.2-1.0); CO2 29.6 mmol/L (21.0-32.0); CREATININE 0.9 mg/dL (0.55-1.02); Calcium 8.8 mg/dL (8.5-10.1); Calculated LDL 72 mg/dL (<100); Chloride 104 mmol/L (98-107); Cholesterol 125 mg/dL (<200); Estimated GFR 79.35 (mL/min/1.73m2); Glucose 96 mg/dL (74-106); HDL Cholesterol 42 mg/dL (40-60); Potassium 4.1 mmol/L (3.5-5.1); Sodium 142 mmol/L (136-145); TSH (W/Ref FT4) 0.93 uIU/mL (0.36-3.74); Total Protein 6.8 g/dL (6.4-8.2); Triglyceride 58 mg/dL (<150)
[2023-01-10 14:41] LABS: C-Reactive Protein 0.12 mg/dL (0.0-0.3)
== END 2023-01-10 03:04 | disposition home or self-care (01) ==
LOC: LBO 03:03
PROVIDERS: PCP Nurse Practitioner Family; Visit Provider Nurse Practitioner
DX: L40.50 Arthropathic psoriasis, unspecified; Z79.899 Other long term (current) drug therapy
CPT/HCPCS: 36415; 80053; 80061; 85652; 82565; 84132; 84443; 85025; 86140

== ENCOUNTER 2023-02-02 00:54 | Outpatient (CLI) | payer MEDICARE, MEDICAID, SELFPAY ==
--- NOTE | 2023-02-02 07:15 | DI.MRI_ITS ---
Exam(s) MR LUMBAR SPINE WO EXAM: MR LUMBAR SPINE WO CLINICAL HISTORY: Worsening sciatica,LOW BACK PAIN, M54.50. TECHNIQUE: Multiplanar multisequence MRI of the Lumbar spine was performed. COMPARISON: CR XR ARTHRITIS SERIES from 12/15/2020 FINDINGS: Bones: The last intervertebral disc space is designated the L5/S1 level for the numbering purpose of this examination. The vertebral body heights are well maintained. Mild levoscoliosis. The marrow s ignal characteristics are unremarkable. Cord: The conus tip ends at the T12 level. It is of normal size and signal intensity. T12-L1: No disc herniations or bulges are present. No central spinal canal or neural foraminal stenos is. L1-2: Minimal disc bulging. Small endplate osteophytes. No central spinal canal or neural foraminal stenosis. L2-3: No disc herniations or bulges are present. No central spinal canal or neural foraminal stenosis . L3-4: No disc herniations or bulges are present. No central spinal canal or neural foraminal stenosis . L4-5: Mild concentric disc bulging. Prominent facet joint degenerative changes and ligamentous hyper trophy combine with the disc bulging to produce mild central canal stenosis and moderate bilateral ne ural foraminal narrowing, greater on the left. L5-S1: Minimal disc bulging. Mild facet joint degenerative changes. Mild bilateral neural foraminal narrowing. No central canal stenosis. The visualized SI joints and sacrum are well maintained. Soft tissues: The paraspinal soft tissues are unremarkable. IMPRESSION: The combination of degenerative disc changes and facet degenerative changes produces mild central can al stenosis of the as well as moderate bilateral neural foraminal narrowing at L L4-5. DATA REPOSITORY:
== END 2023-02-02 01:14 ==
LOC: DI 00:54
PROVIDERS: PCP Nurse Practitioner Family; Visit Provider Nurse Practitioner Family
DX: M54.59 Other low back pain (principal); M47.817 Spondylosis without myelopathy or radiculopathy, lumbosacral region; M51.37 Other intervertebral disc degeneration, lumbosacral region; M48.07 Spinal stenosis, lumbosacral region
CPT/HCPCS: 72148

== ENCOUNTER → 2023-03-27 09:06 | Outpatient (BNVA) | payer MEDICARE, MEDICAID, SELFPAY | PROVIDERS: PCP Nurse Practitioner Family; Referring Provider Nurse Practitioner Family; Visit Provider Psychiatry & Neurology Neurology | DX: R25.1 Tremor, unspecified (principal); G89.29 Other chronic pain; M54.16 Radiculopathy, lumbar region; I10 Essential (primary) hypertension | CPT/HCPCS: 99215; G2212 ==

== ENCOUNTER 2023-11-16 12:42 | Outpatient (REF) | payer OTHER, MEDICAID, SELFPAY ==
--- NOTE | 2023-11-16 11:00 | PAPFT_PTH ---
PATIENT: Rose Cook LOC: [facility] U#:[id number] AGE/SX: 48/F ROOM: RE11/16/[address]: Lucia Mcclure CNM : 1975 BED: DIS: 11/16/2023 SPEC #: [id number] RECD: 11/16/23 14:58 STATUS: JAEL REBolivar #: [id number] TERESA: 11/16/23 11:[address]: Lucia Mcclure DEPT: [facility] Cytology RECD BY: Iris Bae ENTERED: 11/16/23 14:59 SP TYPE: PAPFT OT DR: Dhiraj Whipple, HERO Tissues: 1 - CX/ENDOCX FOR PAP SMEARS Procedures: PAP THIN PREP/[facility] Screening HPV DNA PROBE Comments: [id number]
== END 2023-11-16 12:43 | disposition home or self-care (01) ==
LOC: LBN 12:42
PROVIDERS: PCP Nurse Practitioner Family; Visit Provider Advanced Practice Midwife
DX: Z01.419 Encounter for gynecological examination (general) (routine) without abnormal findings (principal); Z11.51 Encounter for screening for human papillomavirus (HPV)
CPT/HCPCS: 88142; 87624

== ENCOUNTER → 2023-12-21 00:31 | Outpatient (CLI) | payer OTHER, MEDICAID, SELFPAY ==
--- NOTE | 2023-12-21 13:54 | DI.MAMMO_ITS ---
Exam(s) MAMMO SCREENING EXAM: MAMMO SCREENING CLINICAL HISTORY: screening,z12.39,family h/o breast ca TECHNIQUE: Bilateral full field digital CC and MLO mammographic images were obtained with 3D tomosyn thesis and utilizing computer aided detection (CAD). COMPARISON: Available for comparison. FINDINGS: Masses/Architectural Distortion: None seen. Microcalcifications: No suspicious pleomorphic-type are seen. Skin Thickening/Nipple Retraction: None. IMPRESSION: 1. No significant interval change with no specific features of malignancy noted. 2. Unless there is more urgent need, screening mammography is recommended, as per [employer] [place] [employer] guidelines. BI-RADS Category 1 - Negative Breast Density - Category B - Scattered areas of fibroglandular density Breast density category C or D implies that the patient has dense breast tissue. Dense breast tissue is very common and is not abnormal but dense breast tissue can make it harder to find cancer on a ma mmogram. Also, dense breast tissue may increase their breast cancer risk. This information about the result of the mammogram report was provided to the patient to raise their awareness. Use this report when you speak with the patient about their risks for breast cancer, which includes their family hist ory. At that time, you may recommend for more screening tests (Ultrasound or MRI) as they might be us eful based on their risk. A negative radiographic report should not delay biopsy if a dominant or clinically suspicious mass is present. Up to ten percent of cancers are not identified on mammography. A negative report may reinforce clinical impression. Adenosis and dense breasts may obscure an underlying neoplasm. False positive reports average 6 to 10%. Patient will receive a letter notifying them of these results.
== END ==
PROVIDERS: PCP Nurse Practitioner Family; Visit Provider Nurse Practitioner Family
DX: Z85.3 Personal history of malignant neoplasm of breast (principal); Z12.31 Encounter for screening mammogram for malignant neoplasm of breast
CPT/HCPCS: 77063; 77067

== ENCOUNTER 2024-02-04 12:59 | Outpatient (CLI) | payer OTHER, MEDICAID, SELFPAY ==
--- NOTE | 2024-02-04 12:45 | RT.EKG_ITS ---
APPROVED REPORT Exam: Resting ECG Reason for Exam: Surgery scheduled at [facility] [place] on 03/03/24 Patient Location: O HR:66 bpm ECG Measurements Heart Rate 66 AXIS NH 165 P 37 QRSd 93 QRS -16 QT 413 T 55 QTc 433 Conclusion Sinus rhythm...normal P axis, V-rate 50- 99 Normal Electrocardiogram
== END 2024-02-04 13:00 | disposition home or self-care (01) ==
LOC: DI.CM 12:59
PROVIDERS: PCP Nurse Practitioner Family; Visit Provider Nurse Practitioner Family
DX: Z01.818 Encounter for other preprocedural examination (principal)
CPT/HCPCS: 93010

== ENCOUNTER 2024-02-26 05:17 | Outpatient (CLI) | payer OTHER, MEDICAID, SELFPAY ==
[2024-02-26 15:05] LABS: Abs Immature Grans 0.02 10^3/uL (0.0-0.06); Absolute Basophil Count 0.05 10^3/uL (0.0-0.2); Absolute Eosinophil Count 0.15 10^3/uL (0.0-0.7); Absolute Lymphocyte Count 1.41 10^3/uL (1.2-3.4); Absolute Monocyte Count 0.38 10^3/uL (0.1-0.8); Absolute Neutrophil Count 4.55 10^3/uL (1.2-6.7); Basophils % 0.8; Eosinophils % 2.3; HCT 44.7 % (36.0-46.0); HGB 14.6 g/dL (11.2-15.7); Immature Grans % 0.3; Lymphocytes % 21.5; MCH 28.9 pg (27.0-33.0); MCHC 32.7 % (32.0-36.0); MCV 89 fL (80-95); MPV 8.8 fL (8.0-11.0); Monocytes % 5.8; Neutrophils % 69.3; Platelet Count 226 10^3/uL (130-400); RBC 5.05 10^6/uL (3.93-5.22); RDW 13.4 % (11.7-14.6); RDW-SD 43.4 fL; WBC 6.56 10^3/uL (4.4-10.8)
[2024-02-26 15:19] LABS: Prothrombin Time 10.2 sec (9.1-11.1)
[2024-02-26 17:15] LABS: Anion Gap 9.5 mmol/L (3-11); BUN 8 mg/dL (7-18); CO2 27.5 mmol/L (21.0-32.0); CREATININE 0.9 mg/dL (0.55-1.02); Calcium 8.7 mg/dL (8.5-10.1); Chloride 104 mmol/L (98-107); Estimated GFR 78.86 (mL/min/1.73m2); Glucose 116 mg/dL (74-106); Sodium 141 mmol/L (136-145)
== END 2024-02-26 05:18 | disposition home or self-care (01) ==
LOC: LBO 05:18
PROVIDERS: PCP Nurse Practitioner Family; Visit Provider Orthopaedic Surgery
DX: M43.12 Spondylolisthesis, cervical region (principal)
CPT/HCPCS: 36415; 80048; 85025; 85610

== ENCOUNTER 2024-12-09 14:06 | Outpatient (REF) | payer MEDICARE, MEDICAID, SELFPAY | END 2024-12-09 14:07 | disposition home or self-care (01) | LOC: LBN 14:06 | PROVIDERS: PCP Nurse Practitioner Family; Visit Provider Physician Assistant | DX: N39.0 Urinary tract infection, site not specified (principal) | CPT/HCPCS: 87077; 87086; 87186 ==

== ENCOUNTER 2025-04-07 02:23 | Outpatient (CLI) | payer MEDICARE, MEDICAID, SELFPAY ==
[2025-04-07 12:02] LABS: Anion Gap 5.6 mmol/L (3-11); BUN 11 mg/dL (7-18); CO2 30.4 mmol/L (21.0-32.0); CREATININE 0.7 mg/dL (0.55-1.02); Calcium 8.9 mg/dL (8.5-10.1); Chloride 105 mmol/L (98-107); Cholesterol 122 mg/dL (<200); Estimated GFR 105.95 (mL/min/1.73m2); Glucose 105 mg/dL (74-106); HDL Cholesterol 44 mg/dL (>or=50); Potassium 3.7 mmol/L (3.5-5.1); Sodium 141 mmol/L (136-145)
[2025-04-07 12:03] LABS: Triglyceride <25 mg/dL (<150)
[2025-04-07 12:06] LABS: Hemoglobin A1C 5.3 % (<5.7)
[2025-04-07 12:20] LABS: LDL CHOLESTEROL 77 mg/dL (<100)
== END 2025-04-07 02:24 | disposition home or self-care (01) ==
LOC: LBO 02:23
PROVIDERS: PCP Nurse Practitioner Family; Visit Provider Nurse Practitioner Family
DX: I10 Essential (primary) hypertension (principal); Z13.220 Encounter for screening for lipoid disorders; Z13.1 Encounter for screening for diabetes mellitus
CPT/HCPCS: 36415; 80048; 80061; 83721; 83036

== ENCOUNTER 2025-07-22 10:25 | Outpatient (CLI) | payer MEDICARE, MEDICAID, SELFPAY ==
--- NOTE | 2025-07-22 10:15 | RT.EKG_ITS ---
APPROVED REPORT Exam: Resting ECG Reason for Exam: pre-op Patient Location: O HR:71 bpm ECG Measurements Heart Rate 71 AXIS [place] 143 P 14 QRSd 96 QRS -37 QT 403 T 60 QTc 438 Conclusion Sinus rhythm...normal P axis, V-rate 50- 99 early transition...QRS area>0 in V2
== END 2025-07-22 10:26 | disposition home or self-care (01) ==
PROVIDERS: PCP Nurse Practitioner Family; Visit Provider Nurse Practitioner Family
DX: Z01.818 Encounter for other preprocedural examination (principal); I10 Essential (primary) hypertension
CPT/HCPCS: 93010

== ENCOUNTER 2025-07-22 11:01 | Outpatient (CLI) | payer MEDICARE, MEDICAID, SELFPAY ==
[2025-07-22 14:05] LABS: Abs Immature Grans 0.03 10^3/uL (0.0-0.06); HCT 38.9 % (36.0-46.0); HGB 12.5 g/dL (11.2-15.7); Immature Grans % 0.3 %; MCH 27.4 pg (27.0-33.0); MCHC 32.1 % (32.0-36.0); MCV 85 fL (80-95); MPV 9.7 fL (8.0-11.0); Platelet Count 282 10^3/uL (130-400); RBC 4.57 10^6/uL (3.93-5.22); RDW 14.5 % (11.7-14.6); RDW-SD 44.8 fL; WBC 10.20 10^3/uL (4.4-10.8)
[2025-07-22 14:26] LABS: Anion Gap 8.9 mmol/L (3-11); BUN 8 mg/dL (7-18); CO2 25.1 mmol/L (21.0-32.0); Calcium 9.1 mg/dL (8.5-10.1); Chloride 105 mmol/L (98-107); Estimated GFR 90.27 (mL/min/1.73m2); Glucose 110 mg/dL (74-106); Potassium 4.0 mmol/L (3.5-5.1); Sodium 139 mmol/L (136-145)
[2025-07-22 14:40] LABS: INR 1.0 (0.9-1.1); Prothrombin Time 9.9 sec (9.1-11.1)
== END 2025-07-22 11:02 | disposition home or self-care (01) ==
LOC: LOS 11:01
PROVIDERS: PCP Nurse Practitioner Family; Referring Provider Nurse Practitioner Family; Visit Provider Nurse Practitioner Family
DX: Z79.01 Long term (current) use of anticoagulants (principal); I10 Essential (primary) hypertension
CPT/HCPCS: 36415; 80048; 85025; 85610